=== PATIENT | male | born 1990 | race Caucasian/White ===

== ENCOUNTER 2018-08-08 18:28 | Emergency (ER) | payer MEDICAID ==
[2018-08-08 18:38] VITALS: TEMP 98.2
[2018-08-08 18:50] VITALS: BMI 27.4
[2018-08-08] MEDS ORDERED: Sodium Chloride 0.9% 1,000 ML IV ONE ×2 (19:13→20:03)
[2018-08-08] MEDS ORDERED: Tetanus/Diphtheria Toxoids 0.5 ml Syringe IM ONE ×2 (19:15→19:48)
[2018-08-08] MEDS ORDERED: Bacitracin 500 Units/gm Oint Foilpak UD TOP ONE (19:16)
[2018-08-08 19:36] LABS: BASO % 0.3 % (0.0-2.0); EOS # 0.4 K/uL (0.0-0.7); EOS % 2.9 % (0.0-4.0); HEMOGLOBIN 15.5 g/dL (12.0-18.0); LYMPH # 4.7 K/uL (1.0-4.3); LYMPH % 33.8 % (20.0-40.0); MEAN CELL VOLUME 95.1 fL (80.0-94.0); MEAN CORPUSCULAR HEMOGLOBIN 31.3 pg (27.0-31.0); MEAN CORPUSCULAR HGB CONC 32.9 g/dL (33.0-37.0); MEAN PLATELET VOLUME 8.5 fL (7.2-11.7); MONO # 1.1 K/uL (0.0-0.8); MONO % 8.1 % (0.0-10.0); NEUT # 7.6 K/uL (1.8-7.0); NEUT % 54.9 % (50.0-75.0); RBC 4.96 Mil/uL (4.40-5.90); WHITE BLOOD COUNT 13.9 K/uL (4.8-10.8)
--- NOTE | 2018-08-08 19:38 | C.PDOC ---
History Of Present Illness 28 year old male BIBA after having a witnessed tonic clonic seizure outside of his house (in the street). Patient states he bit his tongue but denies having loss of bowel/bladder control. Patient has a Hx of seizure disorder and was previously on Keppra and Dilantin but has not taken them in 3 years. Patient reports having one breakthrough seizure in July 2018. Currently he is complaining of a mild headache. Patient denies dizziness, nausea, vomiting, chest pain, neck pain, or SOB. Tetanus vaccination status is unknown. Time Seen by Provider: 08/08/18 19:02 Chief Complaint (Nursing): Seizure History Per: Patient, EMS History/Exam Limitations: no limitations Recent Seizure Activity Began: Just Before Arrival Number Of Seizures: One Length Of Seizures (Duration): Unknown Quality Of Seizure: Generalized Precipitating Factor(s): Missed Dose Of Anti-seizure Medication Associated Symptoms: Bit Tongue Post-ictal Period: No Recent travel outside of the [place]: No Past Medical History Reviewed: Historical Data, Nursing Documentation, Vital Signs Vital Signs: Last Vital Signs Temp 98.2 F 08/08/18 18:37 Pulse 96 H 08/08/18 18:37 Resp 11 L 08/08/18 18:54 BP 111/51 L 08/08/18 18:37 Pulse Ox 96 08/08/18 18:37 - Medical History PMH: Post Traumatic Stress Disorder, Seizures Family History: States: No Known Family Hx - Social History Hx Alcohol Use: Yes Hx Substance Use: Yes - Immunization History Hx Tetanus Toxoid Vaccination: No Hx Influenza Vaccination: No Hx Pneumococcal Vaccination: No Review Of Systems Except As Marked, All Systems Reviewed And Found Negative. Constitutional: Negative for: Fever Cardiovascular: Negative for: Chest Pain, Palpitations Respiratory: Negative for: Shortness of Breath Neurological: Positive for: Seizures, Headache (Mild). Negative for: Weakness, Numbness, Altered Mental Status, Dizziness Physical Exam - Physical Exam Appears: Well, Non-toxic, No Acute Distress Skin: Warm, Dry, Other (Scattered abrasions to left dorsal aspect of MCP joints) Head: Normacephalic, Other (Contusion and abrasion to right parietal scalp) Eye(s): bilateral: Normal Inspection ((-) [place] eys), PERRL, EOMI Nose: Normal, No Deformity, No Tenderness Oral Mucosa: Moist Tongue: Other (Superficial bite/laceration right anterior tongue) Lips: Normal Appearing, No Swelling Neck: Normal, Normal ROM, No Midline Cervical Tenderness, No Paracervical Tenderness, No Step Off Deformity, Supple Chest: Symmetrical, No Tenderness Cardiovascular: Rhythm Regular Respiratory: Normal Breath Sounds, No Rales, No Rhonchi, No Wheezing Gastrointestinal/Abdominal: Normal Exam, Bowel Sounds, Soft, No Tenderness Back: Normal Inspection, No Vertebral Tenderness, No Paraspinal Tenderness Extremity: Normal ROM Extremity: Bilateral: Atraumatic, Normal Color And Temperature, Normal ROM Neurological/Psych: Oriented x3, Normal Speech, Normal Cognition, Normal Cranial Nerves, No Cerebellar Signs, Normal Motor, Normal Sensation Gait: Steady ED Course And Treatment - Laboratory Results Result Diagrams: 08/08/18 19:33 08/08/18 21:40 O2 Sat by Pulse Oximetry: 96 (Room air) Pulse Ox Interpretation: Normal - CT Scan/US ct head Other Rad Studies (CT/US): Read By Radiologist, Radiology Report Reviewed CT/US Interpretation: Accession No. : [id number]. Patient Name / ID : OKSANA MARSHALL / [id number]. Exam Date : 08/08/2018 19:35:04 ( Approved ). Study Comment : Sex / Age : M / 28Y. Creator : Eli Monson MD. Dictator : Eli Monson MD. Shipping Lead : [employer] Fabricator Assembler : Eli Monson MD. Approver2 : Report Date : 08/09/2018 09:15:15. My Comment : . Date of service: 08/08/2018. PROCEDURE: CT HEAD WITHOUT CONTRAST. HISTORY: head injury, seizure. COMPARISON: None available. TECHNIQUE: Axial computed tomography images were obtained through the head/brain without intravenous contrast. Radiation dose: Total exam DLP = 1116.51 mGy-cm. This CT exam was performed using one or more of the following dose reduction techniques: Automated exposure control, adjustment of the mA and/or kV according to patient size, and/or use of iterative reconstruction technique. FINDINGS: HEMORRHAGE: No intracranial hemorrhage. BRAIN: Pal-white matter differentiation is preserved. There is no mass, mass effect or abnormal extra- axial fluid collection. There is no territorial infarction. The midline sagittal structures are normal. VENTRICLES: The ventricles are normal in size, shape and configuration. There is a keith cisterna magna. CALVARIUM: The skull base and calvarium are normal. PARANASAL SINUSES: Predominantly clear. MASTOID AIR CELLS: Predominantly clear. OTHER FINDINGS: None. IMPRESSION: No acute intracranial abnormality. A preliminary report was provided by [facility]. Progress Note: Blood work and CT head ordered and reviewed. Patient given IV NS bolus x 2, tetanus vaccination, bacitracin to abrasions. He reports not feeling well with prior Keppra/Dilantin - no loading given in ED. Reevaluation Time: 23:00 Reassessment Condition: Improved (Patient reassessed, is resting comfortably and in no pain/distress. Patient given Rx for Keppra and instructed to follow up neurology within 1 week. He understands he should return to ED if symptoms return/worsen.) Disposition Counseled Patient/Family Regarding: Studies Performed, Diagnosis, Need For Followup, Rx Given - Disposition Referrals: [facility] [Outside] Chastity Paul MD [Staff Provider] - Disposition: HOME/ ROUTINE Disposition Time: 23:00 Condition: STABLE Additional Instructions: FOLLOW UP WITH NEUROLOGY WITHIN 1 WEEK RETURN TO ER IF YOU HAVE ANY CONCERNING SYMPTOMS Prescriptions: Levetiracetam [Keppra] 500 mg PO BID #60 tablet Instructions: Seizures, Adult (DC) Forms: [facility] (Jordanian) Print Language: SYRIAC - Clinical Impression Clinical Impression: Seizure - Scribe Statement The provider has reviewed the documentation as recorded by the Scribe Jeff Contreras All medical record entries made by the Scribe were at my direction and personally dictated by me. I have reviewed the chart and agree that the record accurately reflects my personal performance of the history, physical exam, medical decision making, and the department course for this patient. I have also personally directed, reviewed, and agree with the discharge instructions and disposition.
--- NOTE | 2018-08-08 19:39 | C.PDOC ---
Time Seen by Provider: 08/08/18 19:02 Chief Complaint (Nursing): Seizure Past Medical History Vital Signs: Last Vital Signs Temp 98.2 F 08/08/18 18:37 Pulse 96 H 08/08/18 18:37 Resp 11 L 08/08/18 18:54 BP 111/51 L 08/08/18 18:37 Pulse Ox 96 08/08/18 18:37 - Medical History PMH: Post Traumatic Stress Disorder, Seizures Family History: States: Unknown Family Hx - Social History Hx Alcohol Use: Yes Hx Substance Use: Yes - Immunization History Hx Tetanus Toxoid Vaccination: No Hx Influenza Vaccination: No Hx Pneumococcal Vaccination: No ED Course And Treatment O2 Sat by Pulse Oximetry: 96 Disposition - Disposition
[2018-08-08] MEDS ORDERED: Bacitracin 500 Units/gm Oint Foilpak UD ONE (19:47)
[2018-08-08] MEDS ORDERED: Sodium Chloride 0.9% 1,000 ML ONE (19:48)
[2018-08-08 20:02] LABS: ALB/GLOB RATIO 1.7 (1.0-2.1); ALBUMIN 4.8 g/dL (3.5-5.0); ALT/SGPT 38 U/L (21-72); AST/SGOT 26 U/L (17-59); BLOOD UREA NITROGEN 10 mg/dL (9-20); CALCIUM 9.5 mg/dl (8.6-10.4); GFR NON-AFRICAN AMERICAN 60
[2018-08-08 22:19] LABS: ALB/GLOB RATIO 1.4 (1.0-2.1); ALBUMIN 3.7 g/dL (3.5-5.0); ALT/SGPT 38 U/L (21-72); AST/SGOT 25 U/L (17-59); BLOOD UREA NITROGEN 10 mg/dL (9-20); CALCIUM 8.5 mg/dl (8.6-10.4); GFR NON-AFRICAN AMERICAN > 60
[2018-08-08 23:01] VITALS: BP 125/78; PULSE 77; RESP 16
--- NOTE | 2018-08-09 09:18 | CT ---
Date of service: 08/08/2018 PROCEDURE: CT HEAD WITHOUT CONTRAST. HISTORY: head injury, seizure COMPARISON: None available. TECHNIQUE: Axial computed tomography images were obtained through the head/brain without intravenous contrast. Radiation dose: Total exam DLP = 1116.51 mGy-cm. This CT exam was performed using one or more of the following dose reduction techniques: Automated exposure control, adjustment of the mA and/or kV according to patient size, and/or use of iterative reconstruction technique. FINDINGS: HEMORRHAGE: No intracranial hemorrhage. BRAIN: Pal-white matter differentiation is preserved. There is no mass, mass effect or abnormal extra-axial fluid collection. There is no territorial infarction. The midline sagittal structures are normal. VENTRICLES: The ventricles are normal in size, shape and configuration. There is a keith cisterna magna. CALVARIUM: The skull base and calvarium are normal. PARANASAL SINUSES: Predominantly clear. MASTOID AIR CELLS: Predominantly clear. OTHER FINDINGS: None. IMPRESSION: No acute intracranial abnormality. A preliminary report was provided by [facility].
[2018-08-17 18:49] VITALS: O2SAT 96
== END 2018-08-08 23:00 | disposition home or self-care (01) ==
LOC: C.ER 18:28
DX: G40.909 Epilepsy, unspecified, not intractable, without status epilepticus (principal); S00.01XA Abrasion of scalp, initial encounter; X58.XXXA Exposure to other specified factors, initial encounter
CPT/HCPCS: 70450; 80053; 82550; 85025; 90471; 90714; 96360; 96361; 99285; J7030

== ENCOUNTER 2018-10-25 13:46 | Emergency (ER) | payer MEDICAID ==
[2018-10-25 13:47] VITALS: BMI 27.4
--- NOTE | 2018-10-25 14:05 | C.PDOC ---
History Of Present Illness 28 y/o male,w/PMhx of seizure disorder, brought to ER by ambulance for evaluation of seizure activity. Patient states that he was talking to his girlfriend on the phone when he began to have loss of consciousness. Patient reports that he woke up in the ambulance.He states that the seizure was not atypical from his usual seizures. He notes that the seizure was witnessed by multiple bystanders.Denies having fever, chills, CP, SOB, cough, nausea, vomiting, and urinary symptoms. <Drake Contreras - Last Filed: 10/25/18 15:20> <Davida Hernandez - Last Filed: 10/25/18 14:02> History Per: Patient History/Exam Limitations: no limitations Severity: Moderate <Drake Contreras - Last Filed: 10/25/18 15:20> Chief Complaint (Nursing): Seizure Past Medical History - Medical History PMH: Post Traumatic Stress Disorder, Seizures Family History: States: Unknown Family Hx - Social History Hx Alcohol Use: Yes Hx Substance Use: Yes - Immunization History Hx Tetanus Toxoid Vaccination: No Hx Influenza Vaccination: No Hx Pneumococcal Vaccination: No <Davida Hernandez - Last Filed: 10/25/18 14:02> Reviewed: Historical Data, Nursing Documentation, Vital Signs Vital Signs: Last Vital Signs Temp Pulse 80 10/25/18 14:00 Resp 18 10/25/18 14:00 BP 122/62 10/25/18 14:00 Pulse Ox 97 10/25/18 14:00 Surgical History: No Surg Hx Family History: States: No Known Family Hx <Drake Contreras - Last Filed: 10/25/18 15:20> ED Course And Treatment - Laboratory Results Result Diagrams: 10/25/18 14:31 10/25/18 14:31 <Drake Contreras - Last Filed: 10/25/18 15:20> Disposition <Davida Hernandez - Last Filed: 10/25/18 14:02> <Drake Contreras - Last Filed: 10/25/18 15:20> - Disposition Forms: [employer] (Cameroonian)
[2018-10-25 14:36] LABS: BASO % 0.5 % (0.0-2.0); EOS # 0.4 K/uL (0.0-0.7); EOS % 5.1 % (0.0-4.0); HEMOGLOBIN 14.3 g/dL (12.0-18.0); LYMPH # 1.9 K/uL (1.0-4.3); LYMPH % 25.1 % (20.0-40.0); MEAN CELL VOLUME 93.5 fL (80.0-94.0); MEAN CORPUSCULAR HEMOGLOBIN 31.4 pg (27.0-31.0); MEAN CORPUSCULAR HGB CONC 33.6 g/dL (33.0-37.0); MEAN PLATELET VOLUME 8.3 fL (7.2-11.7); MONO # 0.7 K/uL (0.0-0.8); MONO % 9.4 % (0.0-10.0); NEUT # 4.6 K/uL (1.8-7.0); NEUT % 59.9 % (50.0-75.0); RBC 4.55 Mil/uL (4.40-5.90); WHITE BLOOD COUNT 7.7 K/uL (4.8-10.8)
[2018-10-25 14:49] LABS: ALB/GLOB RATIO 1.6 (1.0-2.1); ALBUMIN 4.1 g/dL (3.5-5.0); ALT/SGPT 30 U/L (21-72); AST/SGOT 29 U/L (17-59); BLOOD UREA NITROGEN 15 mg/dL (9-20); CALCIUM 8.7 mg/dl (8.6-10.4); GFR NON-AFRICAN AMERICAN > 60
--- NOTE | 2018-10-25 15:25 | C.PDOC ---
History Of Present Illness 28 y/o male,w/PMhx of seizure disorder, brought to ER by ambulance for evaluation of seizure activity. Patient states that he was talking to his girlfriend on the phone when he began to have loss of consciousness. Patient reports that he woke up in the ambulance.He states that the seizure was not atypical from his usual seizures. He notes that the seizure was witnessed by multiple bystanders. He is currently taking Keppra.Denies having fever, chills, CP, SOB, cough, nausea, vomiting, and urinary symptoms. Time Seen by Provider: 10/25/18 14:02 Chief Complaint (Nursing): Seizure History Per: Patient History/Exam Limitations: no limitations Severity: Moderate Past Medical History Reviewed: Historical Data, Nursing Documentation, Vital Signs Vital Signs: Last Vital Signs Temp Pulse 80 10/25/18 14:00 Resp 18 10/25/18 14:00 BP 122/62 10/25/18 14:00 Pulse Ox 97 10/25/18 14:00 - Medical History PMH: Post Traumatic Stress Disorder, Seizures Other Surgeries: Hx of surgeries Family History: States: No Known Family Hx - Social History Hx Alcohol Use: Yes Hx Substance Use: Yes (marijuan use) - Immunization History Hx Tetanus Toxoid Vaccination: No Hx Influenza Vaccination: No Hx Pneumococcal Vaccination: No Review Of Systems Except As Marked, All Systems Reviewed And Found Negative. Constitutional: Negative for: Fever, Chills Cardiovascular: Negative for: Chest Pain Respiratory: Negative for: Shortness of Breath Gastrointestinal: Negative for: Nausea, Vomiting Neurological: Positive for: Seizures Psych: Negative for: Suicidal ideation Physical Exam - Physical Exam Additional Physical Exam Comments: Constitutional: No acute distress. Head: Normocephalic. Atraumatic. Superficial dried blood on face from mouth. Eyes: PERRL. ENT: Moist mucous membranes. Right Lateral Tongue Bite. Neck: Supple. No Midline Tenderness. Cardiovascular: Regular rate. Radial pulse 2+ bilaterally. Chest: No tenderness. Respiratory: Clear to auscultation bilaterally. GI: Soft. Nontender. Nondistended. Back: No Midline Tenderness.No CVA tenderness. Musculoskeletal: No tenderness or swelling of extremities.Full ROM x4. Skin: Abrasion to dorsum of right hand. No rash. Neurologic: Alert, no focal deficit. ED Course And Treatment - Laboratory Results Result Diagrams: 10/25/18 14:31 10/25/18 14:31 O2 Sat by Pulse Oximetry: 97 (RA) Pulse Ox Interpretation: Normal Medical Decision Making Medical Decision Making: Plan: --Labss unremarkable. Patient in no distress. Discharged home, f/u neuro, return to ED for worsening pain, fever, vomiting, recurrent seizure. Disposition - Disposition Referrals: Yannick Espinoza MD [Staff Provider] - Disposition: HOME/ ROUTINE Disposition Time: 15:39 Condition: STABLE Instructions: Seizures, Adult (DC) Forms: [email or web address] (Uzbek) - Clinical Impression Clinical Impression: Seizure - Scribe Statement The provider has reviewed the documentation as recorded by the Scribe Delmy Flores Provider Attestation: All medical record entries made by the Scribe were at my direction and personally dictated by me. I have reviewed the chart and agree that the record accurately reflects my personal performance of the history, physical exam, medical decision making, and the department course for this patient. I have also personally directed, reviewed, and agree with the discharge instructions and disposition.
[2018-10-25 16:03] VITALS: BP 116/60; PULSE 79; RESP 20; O2SAT 99
== END 2018-10-25 16:03 | disposition home or self-care (01) ==
LOC: C.ER 13:46
DX: G40.909 Epilepsy, unspecified, not intractable, without status epilepticus (principal)

== ENCOUNTER 2019-01-07 14:21 | Emergency (ER) | payer MEDICAID ==
[2019-01-07 14:21] VITALS: BMI 27.4
[2019-01-07 14:50] VITALS: O2SAT 98
[2019-01-07 15:42] LABS: BASO % 0.4 % (0.0-2.0); EOS # 0.4 K/uL (0.0-0.7); EOS % 4.9 % (0.0-4.0); HEMOGLOBIN 15.4 g/dL (12.0-18.0); LYMPH % 26.7 % (20.0-40.0); MEAN CELL VOLUME 93.6 fL (80.0-94.0); MEAN CORPUSCULAR HEMOGLOBIN 30.5 pg (27.0-31.0); MEAN CORPUSCULAR HGB CONC 32.6 g/dL (33.0-37.0); MEAN PLATELET VOLUME 8.3 fL (7.2-11.7); MONO # 0.6 K/uL (0.0-0.8); NEUT # 4.5 K/uL (1.8-7.0); NRBC % 0.1 % (0.0-2.0); RBC 5.05 Mil/uL (4.40-5.90); RED CELL DISTRIBUTION WIDTH 13.9 % (11.5-14.5); WHITE BLOOD COUNT 7.5 K/uL (4.8-10.8)
[2019-01-07 15:59] LABS: ALB/GLOB RATIO 1.8 (1.0-2.1); ALBUMIN 4.7 g/dL (3.5-5.0); ALT/SGPT 28 U/L (21-72); AST/SGOT 36 U/L (17-59); BLOOD UREA NITROGEN 17 mg/dL (9-20); GFR NON-AFRICAN AMERICAN > 60
--- NOTE | 2019-01-07 16:06 | CT ---
Date of service: 01/07/2019 PROCEDURE: CT HEAD WITHOUT CONTRAST. HISTORY: The seizure COMPARISON: Comparison made with CT scan brain 08/08/2018 TECHNIQUE: Axial computed tomography images were obtained through the head/brain without intravenous contrast. Radiation dose: Total exam DLP = 1086.7 mGy-cm. This CT exam was performed using one or more of the following dose reduction techniques: Automated exposure control, adjustment of the mA and/or kV according to patient size, and/or use of iterative reconstruction technique. FINDINGS: HEMORRHAGE: No acute parenchymal, subarachnoid or extra-axial hemorrhage. BRAIN: No evidence of large acute infarct. No obvious parenchymal nor extra-axial masses or collections seen on this noncontrast study. Ventricular and sulcal size are within range or for this patient's stated age. VENTRICLES: No obstructive hydrocephalus. CALVARIUM: Calvarium intact PARANASAL SINUSES: Mild mucosal thickening noted within the ethmoid air complex extending into the inferior aspect of the frontal sinus. Minimal mucosal thickening right maxillary antrum and to a lesser degree right chamber sphenoid sinus MASTOID AIR CELLS: Unremarkable as visualized. No inflammatory changes. OTHER FINDINGS: None. IMPRESSION: No acute intracranial hemorrhage.
--- NOTE | 2019-01-07 16:23 | CT ---
Date of service: 01/07/2019 PROCEDURE: CT Cervical Spine without contrast HISTORY: Fall COMPARISON: None available. TECHNIQUE: Axial computed tomography images were obtained of the cervical spine without the use of intravenous contrast. Coronal and sagittal reformatted images were created and reviewed. Radiation dose: Total exam DLP = 535.84 mGy-cm. This CT exam was performed using one or more of the following dose reduction techniques: Automated exposure control, adjustment of the mA and/or kV according to patient size, and/or use of iterative reconstruction technique. FINDINGS: VERTEBRAE: No acute compression fractures nor retropulsed fragments. Minimal anterior stature loss of the C5 segment however remaining vertebral bodies otherwise exhibit relatively normal stature.. Slight kyphotic angulation deformity centered at the C5-C6 level with straightening of above and below this level.. Findings could be secondary to patient positioning in the gantry however underlying element of muscle spasm may contribute. DISCS/SPINAL CANAL/NEURAL FORAMINA: Disc space heights are relatively maintained. There are no disc herniations nor significant disc bulges. The overall central bony canal and exit foramina appear adequate throughout. PARASPINAL SOFT TISSUES: Unremarkable. OTHER FINDINGS: Lung apices are clear IMPRESSION: Unremarkable CT of the cervical spine. Fractures nor retropulsed fragments. Vertebral bodies exhibit relatively normal stature.. Mild kyphosis centered at the C5-C6 level with straightening of the normal cervical lordosis above and below this level as described
--- NOTE | 2019-01-07 16:57 | C.PDOC ---
History Of Present Illness 28 year old male, whose past medical history includes seizures, presents to the ED with girlfriend after having a witnessed seizure prior to arrival. Patient states he began feeling unwell while he was in the kitchen and started making his way into the bedroom. While in the bedroom, patient fell backwards (girlfriend caught the fall), hit the back of his head against bed stand while having a seizure episode lasting 60-90 seconds, as witnessed by girlfriend. Patient reports positive tongue bite. Patient states he used to take Keppra but recently had medication change. Patient was recently switched to 400mg Aptiom by his neurologist and took day 6 of the medication today. Patient is supposed to start 800mg course of Aptiom after finishing this current medication. Patient states his last seizure was in October 2018. Patient is scheduled for an outpatient EEG tomorrow. He denies fever, chills, cough, abdominal pain. Patient admits to social history of smoking. Neurologist: Dr. Elmer Craven Time Seen by Provider: 01/07/19 14:47 Chief Complaint (Nursing): Seizure History Per: Patient, Other (girlfriend) History/Exam Limitations: no limitations Recent Seizure Activity Began: Just Before Arrival Length Of Seizures (Duration): Seconds (60-90) Precipitating Factor(s): Recent Change In Medication Or Dose Associated Symptoms: Bit Tongue Additional History Per: Patient Past Medical History Reviewed: Historical Data, Nursing Documentation, Vital Signs Vital Signs: Last Vital Signs Temp 97.7 F 01/07/19 14:30 Pulse 76 01/07/19 14:30 Resp 15 01/07/19 14:30 BP 123/72 01/07/19 14:30 Pulse Ox 98 01/07/19 14:30 - Medical History PMH: Post Traumatic Stress Disorder, Seizures Surgical History: No Surg Hx Family History: States: Unknown Family Hx - Social History Hx Alcohol Use: Yes Hx Substance Use: Yes (marijuan use) - Immunization History Hx Tetanus Toxoid Vaccination: No Hx Influenza Vaccination: No Hx Pneumococcal Vaccination: No Review Of Systems Constitutional: Negative for: Fever, Chills ENT: Positive for: Other (positive tongue bite ) Respiratory: Negative for: Cough Gastrointestinal: Negative for: Abdominal Pain Neurological: Positive for: Seizures Physical Exam - Physical Exam Appears: Non-toxic, No Acute Distress Skin: Normal Color, Warm, Dry Head: Normacephalic Eye(s): bilateral: Normal Inspection, PERRL, EOMI Oral Mucosa: Moist Tongue: Bite (to tip of tongue and right lateral aspect. no active bleeding ) Neck: No Midline Cervical Tenderness, Paracervical Tenderness, Supple Chest: Symmetrical, No Deformity, No Tenderness Cardiovascular: Rhythm Regular, No Murmur Respiratory: Normal Breath Sounds, No Rales, No Rhonchi, No Wheezing Extremity: Normal ROM, Capillary Refill (less than 2 seconds ) Neurological/Psych: Oriented x3, Normal Speech, Normal Cognition ED Course And Treatment - Laboratory Results Result Diagrams: 01/07/19 15:33 01/07/19 15:33 Lab Results: Total Bilirubin 0.5 mg/dL (0.2-1.3) 01/07/19 15:33 AST 36 U/L (17-59) 01/07/19 15:33 ALT 28 U/L (21-72) 01/07/19 15:33 Alkaline Phosphatase 71 U/L (38-126) 01/07/19 15:33 Total Protein 7.3 g/dL (6.3-8.3) 01/07/19 15:33 Albumin 4.7 g/dL (3.5-5.0) 01/07/19 15:33 Globulin 2.6 gm/dL (2.2-3.9) 01/07/19 15:33 Albumin/Globulin Ratio 1.8 (1.0-2.1) 01/07/19 15:33 O2 Sat by Pulse Oximetry: 98 (on RA ) Pulse Ox Interpretation: Normal Medical Decision Making Medical Decision Makin: Case discussed with patient's neurologist, Dr. Elmer Craven, who recommends patient to take another 400mg tablet of Aptiom, totaling his dosage to 800mg for today and continue taking 800 mg starting tomorrow as previously prescribed. On reassessment, patient is resting comfortably, showing no signs of distress and is stable for discharge. Patient is advised to follow up tomorrow for EEG and with his neurologist/PMD within 1-2 days for further evaluation. Advised to return to the ED if symptoms persist or worsen. Disposition Counseled Patient/Family Regarding: Studies Performed, Diagnosis, Need For Followup - Disposition Referrals: Elmer Craven MD [Non-Staff] - Disposition: HOME/ ROUTINE Disposition Time: 16:55 Condition: STABLE Additional Instructions: ROLANDO GANDHI, thank you for letting us take care of you today. Your provider was Moira Christopher MD and you were treated for SEIZURE. The emergency medical care you received today was directed at your acute symptoms. If you were prescribed any medication, please fill it and take as directed. It may take several days for your symptoms to resolve. Return to the Emergency Department if your symptoms worsen, do not improve, or if you have any other problems. Please contact your doctor for a follow up visit in 1-2 days. Bring any paperwork you were given at discharge with you along with any medications you are taking to your follow up visit. Our treatment cannot replace ongoing medical care by a primary care provider outside of the emergency department. Thank you for allowing the [employer] team to be part of your care today. Instructions: Seizures, Adult (DC), Head Injury (ED) Forms: [employer] (Faroese), General Discharge Instructions - POA Present On Arrival: None - Clinical Impression Clinical Impression: Seizure disorder, Cervical strain, Head injury - Scribe Statement The provider has reviewed the documentation as recorded by the Scribe (Taylor Campos) Provider Attestation: All medical record entries made by the Scribe were at my direction and personally dictated by me. I have reviewed the chart and agree that the record accurately reflects my personal performance of the history, physical exam, medical decision making, and the department course for this patient. I have also personally directed, reviewed, and agree with the discharge instructions and disposition.
[2019-01-07 17:02] VITALS: BP 116/64; PULSE 85; RESP 19; TEMP 98.4
== END 2019-01-07 17:07 | disposition home or self-care (01) ==
LOC: C.ER 14:21
DX: G40.909 Epilepsy, unspecified, not intractable, without status epilepticus (principal); S09.90XA Unspecified injury of head, initial encounter; S16.1XXA Strain of muscle, fascia and tendon at neck level, initial encounter; W18.30XA Fall on same level, unspecified, initial encounter

== ENCOUNTER 2019-01-08 09:11 | Outpatient (CLI) | payer MEDICAID | END 2019-01-08 09:12 | disposition home or self-care (01) | LOC: C.EEG 09:11 ==